=== PATIENT | male | born 1960 | race Caucasian/White ===

== ENCOUNTER → 2024-07-03 | Outpatient (CLI) | payer MEDICARE ==
[2024-07-03 15:01] LABS: ALBUMIN 4.4 g/dL (3.4-4.8)
[2024-07-03 15:02] LABS: CALCIUM 9.3 mg/dL (8.3-10.5)
[2024-07-03 15:03] LABS: TOTAL PROTEIN 7.5 g/dL (6.2-8.1)
== END ==
LOC: LAB 14:38
PROVIDERS: Family Medicine
DX: E11.9 Type 2 diabetes mellitus without complications (principal)

== ENCOUNTER → 2024-09-15 | Outpatient (CLI) | payer MEDICARE ==
[2024-09-15 13:58] LABS: PH-URINE 5.5 (5.0 - 8.0); URINE APPEARANCE CLEAR (CLEAR); URINE BILIRUBIN NEGATIVE (NEGATIVE); URINE BLOOD NEGATIVE (NEGATIVE); URINE COLOR YELLOW (YELLOW); URINE GLUCOSE 2+ (NEGATIVE); URINE KETONE NEGATIVE (NEGATIVE); URINE LEUKOCYTE ESTERASE NEGATIVE (NEGATIVE); URINE NITRATE POSITIVE (NEGATIVE); URINE PROTEIN(semi-quant) TRACE (NEGATIVE); URINE WBC 0-1 /hpf (0-3)
== END ==
LOC: LAB 13:32
PROVIDERS: Nurse Practitioner Family
DX: R30.0 Dysuria (principal)